=== PATIENT | male | born 1970 | race Hispanic/Latino ===

== ENCOUNTER 2022-08-28 16:55 | Emergency (ER) | payer BC ==
[2022-08-28] MEDS ORDERED: IBUPROFEN 400 MG TAB ONE (17:22)
[2022-08-28 17:42] LABS: SARS-CoV-2 Antigen Rapid Res Positive (Negative)
--- NOTE | 2022-08-28 17:50 | EDPHYS ---
Physician Documentation [facility] Name: Arturo Mckenzie III Age: 51 yrs Sex: Male : 1970 Arrival Date: 08/28/2022 Time: 16:55 Bed IW1 Private MD: ED Physician Kirby Green HPI: 08/28 17:42 This 51 yrs old Male presents to ER via Ambulatory with complaints of Fever, kb Sore Throat. 17:43 The patient or guardian reports cough, that is intermittent, described as mild, flu kb symptoms, arthralgias, low-grade fever, myalgias, no appetite. Onset: The symptoms/episode began/occurred yesterday. Severity of symptoms: At their worst the symptoms were moderate, in the emergency department the symptoms are unchanged. Modifying factors: The symptoms are alleviated by nothing, the symptoms are aggravated by nothing. Associated signs and symptoms: Pertinent positives: fever, rhinorrhea, sore throat. The patient has not experienced similar symptoms in the past. The patient has not recently seen a physician. Pt reports cough, congestion, headache, bodyaches, fever, chills, and sore throat that started yesterday. . Historical: - Allergies: 17:08 No Known Allergies; iw - Home Meds: 17:08 None [Active]; iw - PMHx: 17:08 None; iw - PSHx: 17:08 Appendectomy; iw - Immunization history:: Client reports receiving the 2nd dose of the Covid vaccine. - Social history:: Smoking status: Patient denies any tobacco usage or history of. ROS: 17:41 Abdomen/GI: Negative for abdominal pain, nausea, vomiting, diarrhea, and constipation. kb 17:41 Constitutional: Positive for body aches, chills, fatigue, fever, malaise. 17:41 ENT: Positive for sinus congestion, sore throat, Negative for 17:41 Respiratory: Positive for cough. 17:41 Neuro: Positive for headache. 17:41 All other systems are negative. Exam: 17:41 Constitutional: This is a well developed, well nourished patient who is awake, alert, kb and in no acute distress. Head/Face: Normocephalic, atraumatic. ENT: Moist Mucous membranes Cardiovascular: Regular rate and rhythm with a normal S1 and S2. No gallops, murmurs, or rubs. No pulse deficits. Respiratory: Respirations even and unlabored. No increased work of breathing. Talking in full sentences Abdomen/GI: Soft, non-tender. No distention Skin: Warm, dry with normal turgor. Normal color. MS/ Extremity: Pulses equal, no cyanosis. Neurovascular intact. Full, normal range of motion. Neuro: Awake and alert, GCS 15, oriented to person, place, time, and situation. Moves all extremities. Normal gait. Vital Signs: 17:07 BP 153 / 82; Pulse 112; Resp 18; Temp 101.6; Pulse Ox 98% on R/A; Weight 113.4 kg; iw Height 5 ft. 10 in. ; 17:07 Body Mass Index 35.87 (113.40 kg, 177.8 cm) iw MDM: 17:02 Patient medically screened. kb 17:42 Data reviewed: vital signs, nurses notes. kb 17:44 Differential Diagnosis: Other flu, covid, uri, strep. Counseling: I had a detailed discussion with the patient and/or guardian regarding: the historical points, exam findings, and any diagnostic results supporting the discharge/admit diagnosis, lab results, the need for outpatient follow up, a family practitioner, to return to the emergency department if symptoms worsen or persist or if there are any questions or concerns that arise at home. 08/28 17:08 Order name: Flu; Complete Time: 17:50 08/28 17:08 Order name: SARS-COV-2 Antigen Rapid; Complete Time: 17:44 08/28 17:08 Order name: Strep 08/28 17:43 Order name: Throat Culture EDMS Administered Medications: 17:17 Drug: Ibuprofen PO 800 mg Route: PO; iw Disposition Summary: 08/28/22 17:50 Discharge Ordered Location: Home kb Condition: Stable kb Diagnosis - SARS-associated coronavirus as the cause of diseases classified elsewhere kb Followup: kb - With: Emergency Department - When: As needed - Reason: Worsening of condition Followup: kb - With: Private Physician - When: 2 - 3 days - Reason: Recheck today's complaints, Continuance of care, Re-evaluation by your physician Discharge Instructions: - Discharge Summary Sheet kb - COVID-19 kb - Viral Illness, Adult kb Forms: - Medication Reconciliation Form kb - Thank You Letter kb - Antibiotic Education kb - Prescription Opioid Use kb - Work release form hb Prescriptions: - Zofran 4 mg Oral Tablet - take 1 tablet by ORAL route every 6 hours As needed; 12 tablet; Refills: 0, kb Product Selection Permitted - Tessalon Perles 100 mg Oral Capsule - take 1 capsule by ORAL route every 8 hours As needed; 15 capsule; Refills: 0, kb Product Selection Permitted Signatures: Dispatcher [employer] Pearl Winter, JANA-C DESIZING MACHINE OFFBEARER-Kina Rodriguez, RN RN iw
--- NOTE | 2022-08-28 17:50 | ER ---
Nurse's Notes [facility] Name: Arturo Mckenzie III Age: 51 yrs Sex: Male : 1970 Arrival Date: 08/28/2022 Time: 16:55 Bed IW1 Private MD: Diagnosis: SARS-associated coronavirus as the cause of diseases classified elsewhere Presentation: 08/28 17:07 Chief complaint: Patient states: fever, sore throat, body aches, fever, cough, no iw appetite since yesterday. Coronavirus screen: Client presents with at least one sign or symptom that may indicate coronavirus-19. Ebola Screen: Patient negative for fever greater than or equal to 101.5 degrees Fahrenheit, and additional compatible Ebola Virus Disease symptoms Patient denies exposure to infectious person. Patient denies travel to an Ebola-affected area in the 21 days before illness onset. No symptoms or risks identified at this time. Initial Sepsis Screen: Does the patient meet any 2 criteria? Yes Does the patient have a suspected source of infection?. Risk Assessment: Do you want to hurt yourself or someone else? Patient reports no desire to harm self or others. Onset of symptoms was August 27, 2022. 17:07 Method Of Arrival: Ambulatory iw 17:07 Acuity: MARVIN 4 iw Historical: - Allergies: 17:08 No Known Allergies; iw - Home Meds: 17:08 None [Active]; iw - PMHx: 17:08 None; iw - PSHx: 17:08 Appendectomy; iw - Immunization history:: Client reports receiving the 2nd dose of the Covid vaccine. - Social history:: Smoking status: Patient denies any tobacco usage or history of. Vital Signs: 17:07 BP 153 / 82; Pulse 112; Resp 18; Temp 101.6; Pulse Ox 98% on R/A; Weight 113.4 kg; iw Height 5 ft. 10 in. ; 17:07 Body Mass Index 35.87 (113.40 kg, 177.8 cm) iw ED Course: 17:01 Patient arrived in ED. mr 17:02 Pearl Farrar FNP-C [facility]. kb 17:02 Kirby Green MD is Attending Physician. kb 17:08 Triage completed. iw 17:08 Arm band placed on. iw Administered Medications: 17:17 Drug: Ibuprofen PO 800 mg Route: PO; iw Outcome: 17:50 Discharge ordered by . kb 18:31 Patient left the ED. hb Signatures: Pearl Farrar FNP-C FNP-Ckb Rivera, Mary mr Williams, Irene, RN RN iw Christelle Matthews RN RN hb
[2022-08-28 18:35] VITALS: BP 153/82; TEMP 101.6; O2SAT 98
== END 2022-08-28 18:31 | disposition home or self-care (01) ==
LOC: ER 16:55
DX: U07.1 COVID-19 (principal)
CPT/HCPCS: 36415; 87070; 87081; 87804; 87811; 99282